=== PATIENT | female | born 1960 | race Caucasian/White ===

== ENCOUNTER → 2020-06-20 10:32 | Outpatient (CLI) | payer OTHER, SELFPAY ==
--- NOTE | ~2020-06-20 | MM_ITS ---
EXAMINATION: MM screening [facility] BI w tony HISTORY: Screening mammogram TECHNIQUE: Craniocaudal and mediolateral oblique 3-D tomosynthesis images were obtained and synthetic 2-D images were generated. CAD analysis was submitted and interpreted. COMPARISON: 10/11/2018, 07/02/2017, 06/30/2016 BREAST PARENCHYMAL COMPOSITION: The breasts are heterogeneously dense, which may obscure small masses . FINDINGS: There is no evidence of suspicious mass, calcification, or architectural distortion to sugg est malignancy in either breast. There has been no suspicious interval change. IMPRESSION: 1. No mammographic evidence of malignancy. 2. Recommend routine screening mammography in one year. BI-RADS Category 1: Negative Reviewed, dictated and finalized at location A. CAPTAIN
== END ==
PROVIDERS: Visit Provider Nurse Practitioner Family
DX: Z12.31 Encounter for screening mammogram for malignant neoplasm of breast (principal)
CPT/HCPCS: 77063; 77067

== ENCOUNTER → 2021-06-25 08:49 | Outpatient (CLI) | payer OTHER, SELFPAY ==
--- NOTE | ~2021-06-25 | DEXA_ITS ---
Bone Density Report Name: MERRY VELA V Age: 61 Sex: Female Ethnicity: White Date of : 1960 Indication: osteopenia; height loss; inflammatory bowel disease; postmenopausal Referring Provider: SABINO FARRAR Study: Bone densitometry was performed. Exam Date: June 25, 2021 Accession number: [id number] Bone Density: Region BMD T-score Z-score Classification AP Spine (L1-L4) 0.911 -1.2 0.3 Osteopenia Femoral Neck (Left) 0.598 -2.3 -0.9 Osteopenia Total Hip (Left) 0.683 -2.1 -1.1 Osteopenia Femoral Neck (Right) 0.593 -2.3 -0.9 Osteopenia Total Hip (Right) 0.689 -2.1 -1.0 Osteopenia Total Hip Mean 0.686 -2.1 -1.1 Osteopenia World Health Organization criteria for BMD impression classify patients as: Normal (T-score at or above -1.0), Osteopenia (T-score between -1.0 and -2.5), or Osteoporosis (T-score at or below -2.5). 10-year Fracture Risk(1): Major Osteoporotic Fracture 11% Hip Fracture 1.7% Reported Risk Factors: [place] (), Neck BMD=0.593, BMI=23.4 (1) FRAX(R) Version 3.08. Fracture probability calculated for an untreated patient. Fracture probability may be lower if the patient has received treatment. Previous Exams: Region Exam Age BMD T-score BMD Change BMD Change Date g/cm2 vs Baseline vs Previous AP Spine(L1-L4) 06/25/2021 61 0.911 -1.2 0.084* 0.010 06/20/2019 59 0.901 -1.3 0.074* 0.015 06/16/2017 57 0.885 -1.5 0.059* 0.059* 06/12/2015 55 0.827 -2.0 Total Hip(Left) 06/25/2021 61 0.683 -2.1 -0.052* -0.025 06/20/2019 59 0.709 -1.9 -0.027 -0.025 06/16/2017 57 0.733 -1.7 -0.002 -0.002 06/12/2015 55 0.735 -1.7 Total Hip(Right) 06/25/2021 61 0.689 -2.1 -0.030* -0.006 06/20/2019 59 0.695 -2.0 -0.024 -0.063* 06/16/2017 57 0.758 -1.5 0.039* 0.039* 06/12/2015 55 0.719 -1.8 *Denotes significance at 95% confidence level, LSC for AP Spine = 0.022 g/cm2, LSC for Total Hip = 0.027 g/cm2 Clinical Information Provided by Patient: Has used the following medications: Calcium Has the following medical conditions: Inflammatory bowel diseases Patient maximum height was 67.75 Menopause Age: 44 Drinks caffeinated beverages Onset of menses at age 12 Number of children 3 Impression: The patient has low bone mass, b
== END ==
PROVIDERS: PCP Family Medicine
DX: K51.00 Ulcerative (chronic) pancolitis without complications (principal); Z79.52 Long term (current) use of systemic steroids; M85.88 Other specified disorders of bone density and structure, other site; M85.852 Other specified disorders of bone density and structure, left thigh; M85.851 Other specified disorders of bone density and structure, right thigh
CPT/HCPCS: 77080

== ENCOUNTER → 2021-06-25 08:55 | Outpatient (CLI) | payer OTHER, SELFPAY ==
--- NOTE | ~2021-06-25 | MM_ITS ---
EXAMINATION: MM screening [facility] BI w tony HISTORY: Screening TECHNIQUE: Craniocaudal and mediolateral oblique 3-D tomosynthesis images were obtained and synthetic 2-D images were generated. CAD analysis was submitted and interpreted. COMPARISON: Comparison to multiple prior studies sequentially, with oldest reviewed study dated 06/03. BREAST PARENCHYMAL COMPOSITION: The breasts are heterogeneously dense, which may obscure small masses . FINDINGS: There is no evidence of suspicious mass, calcification, or architectural distortion to sugg est malignancy in either breast. There has been no suspicious interval change. IMPRESSION: 1. No mammographic evidence of malignancy. 2. Recommend routine screening mammography in one year. BI-RADS Category 1: Negative Reviewed, dictated and finalized at location A. LINE REPRESENTATIVES
== END ==
PROVIDERS: PCP Family Medicine; Visit Provider Family Medicine
DX: Z12.31 Encounter for screening mammogram for malignant neoplasm of breast (principal)
CPT/HCPCS: 77063; 77067

== ENCOUNTER 2022-07-28 11:20 | Outpatient (CLI) | payer BC, SELFPAY ==
--- NOTE | ~2022-07-28 | MMUS_ITS ---
EXAMINATION: MM diagnostic [facility] LT w tony, US breast LT complete HISTORY: New area of mammographic asymmetry reported in the inferomedial anterior left breast on outs eddie 07/02/2022 screening mammogram TECHNIQUE: Additional 3-D tomosynthesis images of the left breast were performed and synthetic 2-D im ages were generated. CAD analysis was submitted and interpreted. High resolution complete left breast ultrasound examination including all 4 quadrants and subareolar area was performed. COMPARISON: 07/02/2022, 06/25/2021 outside bilateral screening mammogram examinations BREAST PARENCHYMAL COMPOSITION: The breasts are heterogeneously dense, which may obscure small masses . FINDINGS: MAMMOGRAPHIC FINDINGS: No suspicious mass or architectural distortion, malignant scale, skin thickening or retraction of the left breast is detected. The heterogeneously dense stroma may obscure masses. Complete breast ultrasound examination therefore was performed. ULTRASOUND: 12:00 3 cm from nipple: Parallel circumscribed hypoechoic 3.1 x 6 x 5.6 mm lesion without internal va scularity or posterior shadowing, benign in appearance 3:00 2 cm from nipple: There is an approximately 3 mm relatively circular hypoechoic lesion without i nternal vascular signal or posterior shadowing, likely benign. 11:00: Parallel circumscribed 2 x 4 mm sonolucency without internal vascularity or posterior shadowin g, most likely a small cyst IMPRESSION: 1. Probable benign findings 2. 6 month diagnostic left mammogram and left breast ultrasound follow-up are recommended BI-RADS category 3, probably benign findings. Reviewed, dictated and finalized at location A. [facility] IMPRESSION: 1. Probable benign findings 2. 6 month diagnostic left mammogram and left breast ultrasound follow-up are r ecommended BI-RADS category 3, probably benign findings.
== END 2022-07-28 11:21 | disposition home or self-care (01) ==
LOC: ANHIMG 11:22
PROVIDERS: PCP Family Medicine; Visit Provider Family Medicine
DX: R92.8 Other abnormal and inconclusive findings on diagnostic imaging of breast (principal)
CPT/HCPCS: 76641; 77061; 77065; G0279